=== PATIENT | female | born 1980 ===

== ENCOUNTER 2021-08-12 12:00 | Inpatient (IN) | payer OTHER ==
[~2021-08-12] VITALS: Ht 165.1 cm; Wt 77.3 kg
[2021-08-12 14:46] LABS: BASOPHILS % (AUTO) 0.7 % (0.0-2.0); EOSINOPHILS % (AUTO) 0.7 % (1.0-6.0); HEMATOCRIT 43.4 % (36-46); HEMOGLOBIN 14.6 g/dL (12.0-16.0); LYMPHOCYTES # (AUTO) 1.8 K/uL (1.0-4.8); LYMPHOCYTES % (AUTO) 20.2 % (22.0-44.0); MEAN CORPUSCULAR HEMOGLOBIN 29.3 pg (26.0-34.0); MEAN CORPUSCULAR HGB CONC 33.7 G/dL (31.0-37.0); MEAN CORPUSCULAR VOLUME 87 fL (80-100); MONOCYTES # (AUTO) 0.8 K/uL (0.1-1.0); MONOCYTES % (AUTO) 9.6 % (2.0-9.0); NEUTROPHILS # (AUTO) 6.1 K/uL (1.8-7.7); NEUTROPHILS % (AUTO) 68.8 % (40.0-70.0); PLATELET COUNT (AUTO) 211 K/uL (150-450); RED BLOOD CELL COUNT(AUTO) 4.99 MIL/uL (4.00-5.20); RED CELL DISTRIBUTION WIDTH 14.2 % (11.5-14.5)
[2021-08-12 14:55] LABS: COVID AG,FIA SOURCE NASOPHARYNGEAL
[2021-08-12 14:59] LABS: ANION GAP 14 mmol/L (8-16); CALCIUM, TOTAL 9.9 mg/dL (8.8-10.5); CARBON DIOXIDE 25 mmol/L (22-29); CHLORIDE 100 mmol/L (98-107); CREATININE 0.63 mg/dL (0.60-1.30); GLOMERULAR FILTR. RATE CALC > 60 mL/min (>60); GLUCOSE,RANDOM 91 mg/dL (70-110); POTASSIUM 3.6 mmol/L (3.5-5.1); SODIUM SERUM 139 mmol/L (136-145); UREA NITROGEN, BLOOD 18 mg/dL (7-18)
[2021-08-12 15:05] LABS: ALANINE AMINOTRANSFERASE 19 U/L (12-78); ALBUMIN 3.9 g/dL (3.4-5.0); ALKALINE PHOSPHATASE 80 U/L (46-116); ASPARTATE AMINOTRANSFERASE 17 U/L (15-37); BILIRUBIN,TOTAL 0.4 mg/dL (0.1-1.0); TOTAL PROTEIN, SERUM 8.5 g/dL (6.4-8.2)
[2021-08-12 15:07] LABS: AMPHET/METH SCREEN,URINE POSITIVE (NEGATIVE); BARBITURATE SCREEN, URINE NEGATIVE (NEGATIVE); BENZODIAZEPINES SCREEN,URINE POSITIVE (NEGATIVE); CANNABINOID SCREEN,URINE NEGATIVE (NEGATIVE); COCAINE SCREEN,URINE NEGATIVE (NEGATIVE); METHADONE SCREEN, URINE NEGATIVE (NEGATIVE); OPIATE SCREEN,URINE NEGATIVE (NEGATIVE)
[2021-08-12 15:17] LABS: PHENCYCLIDINE SCREEN,URINE NEGATIVE (NEGATIVE)
[2021-08-12] MEDS ORDERED: ONDANSETRON HCL 4 MG/2 ML VIAL IVP PRN (16:30)
[2021-08-12] MEDS ORDERED: ACETAMINOPHEN 325 MG TABLET PO PRN (16:30)
[2021-08-12 19:05] VITALS: BP 133/79
[2021-08-12] MEDS: LORazepam 1 MG TABLET PO PRN (22:54)
[2021-08-12] MEDS: NICOTINE 14 MG/24 HOUR PATCH TD SCH (23:01)
[2021-08-13] MEDS ORDERED: MAGNESIUM HYDROXIDE SUSPENSION 30 ML UDCUP PO PRN (04:30)
[2021-08-13] MEDS ORDERED: ZOLPIDEM TARTRATE 5 MG TABLET PO PRN (04:30)
[2021-08-13] MEDS ORDERED: ONDANSETRON HCL 4 MG/2 ML VIAL IVP PRN (04:30)
[2021-08-13] MEDS ORDERED: ACETAMINOPHEN 325 MG TABLET PO PRN ×2 (04:30→23:15)
[2021-08-13] MEDS ORDERED: BISACODYL 10 MG RECTAL RECTAL SUPPOSITORY PR PRN (04:30)
[2021-08-13] MEDS ORDERED: IPRATROPIUM BROMIDE 0.5 MG/2.5 ML NEB SOLUTION NEB PRN (04:30)
[2021-08-13] MEDS ORDERED: ALBUTEROL SULFATE 2.5 MG/0.5 ML NEB SOLUTION NEB PRN (04:30)
[2021-08-13 05:00] VITALS: BP 132/77
[2021-08-13 07:43] VITALS: BP 115/79
[2021-08-13] MEDS: HEPARIN SODIUM,PORCINE 5,000 UNITS/ML VIAL SQ SCH ×3 (08:00→23:31)
[2021-08-13] MEDS: NICOTINE 14 MG/24 HOUR PATCH TD SCH (08:17)
[2021-08-13] MEDS: PANTOPRAZOLE SODIUM 40 MG/VIAL IVP SCH (08:20)
[2021-08-13] MEDS: DOCUSATE SODIUM 100 MG CAPSULE PO SCH ×2 (08:21→20:55)
[2021-08-13] MEDS: LORazepam 1 MG TABLET PO PRN (08:29)
[2021-08-13] MEDS ORDERED: NICOTINE 14 MG/24 HOUR PATCH TD SCH (09:00)
[2021-08-13] MEDS: OLANZapine 10 MG TABLET PO SCH ×2 (12:13→20:55)
[2021-08-13] MEDS: RisperiDONE 2 MG TABLET PO SCH ×2 (12:15→20:55)
[2021-08-13] MEDS: HydrOXYzine PAMOATE 50 MG CAPSULE PO SCH ×2 (16:57→20:54)
[2021-08-13 20:55] VITALS: BP 122/75
[2021-08-13] MEDS ORDERED: IBUPROFEN 800 MG TABLET PO PRN (22:15)
[2021-08-13] MEDS ORDERED: HydrOXYzine PAMOATE 50 MG CAPSULE PO PRN (23:15)
[2021-08-13] MEDS: SODIUM CHLORIDE 0.45% 1,000 ML IV SCH (23:15)
[2021-08-13] MEDS ORDERED: LOPERAMIDE HCL 2 MG/15 ML SUSPENSION UDCUP PO PRN (23:15)
[2021-08-13] MEDS ORDERED: LORazepam 1 MG TABLET PO PRN (23:15)
[2021-08-13] MEDS ORDERED: PROMETHAZINE HCL 25 MG TABLET PO PRN (23:15)
[2021-08-13] MEDS ORDERED: CloNIDine HCL 0.1 MG TABLET PO PRN (23:15)
[2021-08-13] MEDS ORDERED: BACLOFEN 10 MG TABLET PO PRN (23:15)
[2021-08-13] MEDS ORDERED: DICYCLOMINE HCL 10 MG CAPSULE PO PRN (23:15)
[2021-08-13] MEDS ORDERED: MAG HYDROX/AL HYDROX/SIMETH ES 30 ML SUSPENSION UDCUP PO PRN (23:15)
[2021-08-13] MEDS ORDERED: TraZODone HCL 50 MG TABLET PO PRN (23:15)
[2021-08-14 05:58] VITALS: BP 120/84
[2021-08-14 07:51] VITALS: BP 119/68
[2021-08-14] MEDS: HEPARIN SODIUM,PORCINE 5,000 UNITS/ML VIAL SQ SCH ×2 (08:00→16:00)
[2021-08-14 08:05] VITALS: BP 119/68
[2021-08-14] MEDS: OLANZapine 10 MG TABLET PO SCH (08:26)
[2021-08-14] MEDS: RisperiDONE 2 MG TABLET PO SCH (08:26)
[2021-08-14] MEDS: HydrOXYzine PAMOATE 50 MG CAPSULE PO SCH ×2 (08:26→16:14)
[2021-08-14] MEDS: LORazepam 1 MG TABLET PO PRN (08:26)
[2021-08-14] MEDS: DOCUSATE SODIUM 100 MG CAPSULE PO SCH (08:26)
[2021-08-14] MEDS: PANTOPRAZOLE SODIUM 40 MG/VIAL IVP SCH (08:30)
[2021-08-14] MEDS: NICOTINE 14 MG/24 HOUR PATCH TD SCH (10:15)
[2021-08-14] MEDS: SODIUM CHLORIDE 0.45% 1,000 ML IV SCH (12:35)
[2021-08-14] MEDS ORDERED: RISP2TAB45 PO (15:20)
[2021-08-14] MEDS ORDERED: OLAN10TA74 PO (15:20)
[2021-08-14 15:39] VITALS: BP 94/76
== END 2021-08-14 16:50 | DRG 885 ==
LOC: EMS 12:00 → 6S 17:00
PROVIDERS: ADMIT Hospitalist; ATTEND Hospitalist
DX: F20.9 Schizophrenia, unspecified (principal); Z20.822 Contact with and (suspected) exposure to COVID-19; Z79.899 Other long term (current) drug therapy; Z87.891 Personal history of nicotine dependence
CPT/HCPCS: 80053; 85025; 99285; G0480; J1644